=== PATIENT | male | born 1950 | race Two or more races ===

== ENCOUNTER 2020-05-11 19:30 | Emergency (ER) | payer OTHER ==
[~2020-05-11] VITALS: Ht 170.2 cm; Wt 70.3 kg
[~2020-05-11 19:30] MED LIST: CIPRO500 MG PO; PYRIDIUM DS200 MG PO; SEPTRA 80/400 T1 TAB PO
[2020-05-11] MEDS ORDERED: METOPROLOL SUCC25 MG PO (19:53)
[2020-05-11] MEDS ORDERED: DILTIAZEM 24HR180 MG PO (19:53)
[2020-05-11] MEDS ORDERED: IRBESARTAN150 MG PO (19:53)
[2020-05-11] MEDS ORDERED: LOSARTAN POTASS25 MG PO (19:53)
[2020-05-11] MEDS ORDERED: HYDROCHLOROTH12.5 MG PO (19:53)
[2020-05-11] MEDS ORDERED: ECOTRIN81 MG PO (19:54)
== END 2020-05-11 22:51 | disposition home or self-care (01) ==
LOC: ER 19:30
DX: R33.8 Other retention of urine (principal)

== ENCOUNTER 2020-05-13 15:11 | Emergency (ER) | payer OTHER ==
[~2020-05-13] VITALS: Ht 170.2 cm; Wt 70.3 kg
[~2020-05-13 15:11] MED LIST changes: +DILTIAZEM 24HR180 MG PO; +ECOTRIN81 MG PO; +HYDROCHLOROTH12.5 MG PO; +IRBESARTAN150 MG PO; +LOSARTAN POTASS25 MG PO; +METOPROLOL SUCC25 MG PO
== END 2020-05-13 18:02 | disposition home or self-care (01) ==
LOC: ER 15:11
DX: R33.8 Other retention of urine (principal)

== ENCOUNTER 2020-05-15 12:51 | Outpatient (CLI) | payer OTHER | END 2020-05-15 12:58 | disposition home or self-care (01) | LOC: RAD 12:51 | PROVIDERS: ATTEND Urology | DX: I11.9 Hypertensive heart disease without heart failure (principal) ==

== ENCOUNTER 2020-05-15 14:10 | Outpatient (CLI) | payer OTHER | END 2020-05-15 14:13 | disposition home or self-care (01) | LOC: EKG 14:10 → LAB 14:10 | PROVIDERS: ATTEND Urology | DX: I11.9 Hypertensive heart disease without heart failure (principal) ==

== ENCOUNTER 2020-05-21 05:50 | Inpatient (IN) | payer OTHER | END 2020-05-22 11:39 | disposition home or self-care (01) | DRG 714 | LOC: CIR.AMB 05:50 → O/R 14:45 → SURH 20:53 | PROVIDERS: ADMIT Urology; ATTEND Urology | PROC: 0VB08ZZ Excision of Prostate, Via Natural or Artificial Opening Endoscopic (ICD-10-PCS; principal; 2020-05-21 07:45) | DX: N40.1 Benign prostatic hyperplasia with lower urinary tract symptoms (principal); R33.8 Other retention of urine; I10 Essential (primary) hypertension ==